=== PATIENT | male | born 1950 | race Caucasian/White ===

== ENCOUNTER 2020-04-01 05:57 | Day surgery (SDC) | payer MEDICARE ==
[~2020-04-01] VITALS: Ht 182.9 cm; Wt 117.7 kg
[2020-04-01 06:30] VITALS: BP 129/84
[2020-04-01] MEDS ORDERED: ASPI81TA45 PO (06:39)
[2020-04-01] MEDS ORDERED: CHOL10003 PO ×2 (06:39)
[2020-04-01] MEDS ORDERED: CAL1TABL7 PO (06:39)
[2020-04-01] MEDS ORDERED: CYAN25009 PO (06:47)
[2020-04-01] MEDS ORDERED: HYDR-3245 PO (06:47)
[2020-04-01] MEDS ORDERED: WARF (06:47)
[2020-04-01] MEDS ORDERED: TRIAMCINOLONE TP (06:47)
[2020-04-01] MEDS ORDERED: TRIA1CAP3 PO (06:47)
[2020-04-01] MEDS ORDERED: FERROUS SULFATE PO (06:47)
[2020-04-01] MEDS ORDERED: TIZA2CAP2 PO (06:47)
[2020-04-01] MEDS ORDERED: METO25TA35 PO (06:47)
[2020-04-01] MEDS ORDERED: DENO60DI SC (06:47)
[2020-04-01] MEDS ORDERED: WARF2.5T32 PO (06:47)
[2020-04-01] MEDS ORDERED: GABA300C PO (06:47)
[2020-04-01] MEDS ORDERED: ZINC220C7 PO (06:49)
[2020-04-01] MEDS ORDERED: WARF1TAB74 PO (06:49)
[2020-04-01 06:56] LABS: INTERNATIONAL NORMALIZED RATIO 2.92 (0.93-1.1)
[2020-04-01 06:58] LABS: ANION GAP 4 mmol/L (5-15); CALCIUM 9.3 mg/dL (8.5-10.1); CHLORIDE 111 mmol/L (98-107); CREATININE 1.12 mg/dL (0.7-1.3)
[2020-04-01 07:01] LABS: PROTHROMBIN TIME 30.4 Seconds (9.6-11.5)
[2020-04-01] MEDS ORDERED: PROPOFOL 10 MG/ML, 20ML ONE (07:38)
== END 2020-04-01 09:03 | disposition home or self-care (01) ==
LOC: CACL 05:57
PROVIDERS: ATTEND Internal Medicine Cardiovascular Disease
DX: I48.0 Paroxysmal atrial fibrillation (principal); I11.0 Hypertensive heart disease with heart failure; I50.9 Heart failure, unspecified; E66.9 Obesity, unspecified; Z68.35 Body mass index [BMI] 35.0-35.9, adult; Z79.01 Long term (current) use of anticoagulants; Z79.82 Long term (current) use of aspirin; Z79.899 Other long term (current) drug therapy; Z87.891 Personal history of nicotine dependence; Z95.2 Presence of prosthetic heart valve; Z96.642 Presence of left artificial hip joint; Z98.84 Bariatric surgery status
CPT/HCPCS: 36415; 80048; 85610; 92960; J2704

== ENCOUNTER → 2020-05-24 | Outpatient (CLI) | payer MEDICARE ==
[~2020-05-24] MED LIST: ASPI81TA45 PO; CAL1TABL7 PO; CHOL10003 PO; CYAN25009 PO; DENO60DI SC; FERROUS SULFATE PO; GABA300C PO; HYDR-3245 PO; METO25TA35 PO; TIZA2CAP2 PO; TRIA1CAP3 PO; TRIAMCINOLONE TP; WARF; WARF1TAB74 PO; WARF2.5T32 PO; ZINC220C7 PO
== END | disposition home or self-care (01) ==
LOC: CVU 10:14
PROVIDERS: ATTEND Internal Medicine Cardiovascular Disease
DX: I08.8 Other rheumatic multiple valve diseases (principal); Z95.3 Presence of xenogenic heart valve
CPT/HCPCS: 93306